=== PATIENT | male | born 2000 | race Two or more races ===

== ENCOUNTER 2021-12-06 19:57 | Emergency (ER) | payer OTHER ==
[~2021-12-06] VITALS: Ht 172.7 cm; Wt 87.8 kg
[2021-12-06 19:58] VITALS: BP 122/76
[2021-12-06] MEDS ORDERED: PENICILLIN V POTASSIUM 500 MG TAB PO ONE (21:20)
[2021-12-06] MEDS ORDERED: LIDOCAINE VISCOUS 2% SOLN 15ML UDC TOP ONE (21:20)
[2021-12-06] MEDS ORDERED: IBUPROFEN 600MG TAB PO ONE (21:20)
[2021-12-06] MEDS ORDERED: LIDVISCBTL TOP (21:31)
[2021-12-06] MEDS ORDERED: IBUP-1022 PO (21:31)
[2021-12-06] MEDS ORDERED: PENI500T PO (21:31)
== END 2021-12-06 22:00 | disposition home or self-care (01) ==
LOC: M ED 19:57
DX: K08.89 Other specified disorders of teeth and supporting structures (principal)

== ENCOUNTER 2022-06-08 12:18 | Emergency (ER) | payer OTHER ==
[~2022-06-08] VITALS: Ht 172.7 cm; Wt 99.6 kg
[2022-06-08 12:18] VITALS: BP 118/63
[~2022-06-08 12:18] MED LIST: IBUP-1022 PO; LIDVISCBTL TOP; PENI500T PO
== END 2022-06-08 19:55 | disposition home or self-care (01) ==
LOC: M ED 12:18
DX: L21.9 Seborrheic dermatitis, unspecified (principal); Z79.1 Long term (current) use of non-steroidal anti-inflammatories (NSAID); Z79.899 Other long term (current) drug therapy

== ENCOUNTER 2022-11-27 21:18 | Emergency (ER) | payer OTHER ==
[~2022-11-27] VITALS: Ht 172.7 cm; Wt 98.0 kg
[2022-11-27 21:18] VITALS: BP 144/65; TEMP 98.5; O2SAT 96
[2022-11-28] MEDS ORDERED: IBUP-1022 PO (01:23)
[2022-11-28] MEDS ORDERED: IBUPROFEN 600MG TAB PO ONE (01:25)
== END 2022-11-28 01:53 | disposition home or self-care (01) ==
LOC: M ED 21:18
DX: S83.92XA Sprain of unspecified site of left knee, initial encounter (principal); W19.XXXA Unspecified fall, initial encounter; Y92.009 Unspecified place in unspecified non-institutional (private) residence as the place of occurrence of the external cause; Z79.1 Long term (current) use of non-steroidal anti-inflammatories (NSAID); Z79.899 Other long term (current) drug therapy